=== PATIENT | female | born 1960 | race Caucasian/White ===

== ENCOUNTER 2021-07-31 13:33 | Emergency (ER) | payer OTHER ==
[2021-07-31] MEDS ORDERED: TETANUS & DIPHTHERIA TOX,ADULT 0.5 ML VIAL ONE (14:22)
[2021-07-31] MEDS ORDERED: TRAMADOL HCL 50 MG TAB ONE (14:22)
--- NOTE | 2021-07-31 15:34 | RAD REPORT ---
EXAM DESCRIPTION: Alice Single View07/31/2021 3:21 pm CLINICAL HISTORY: Chest pain COMPARISON: none FINDINGS: The lungs appear clear of acute infiltrate. The heart is normal size IMPRESSION: No acute abnormalities displayed
--- NOTE | 2021-07-31 15:35 | RAD REPORT ---
EXAM DESCRIPTION: RAD - Humerus Right - 07/31/2021 3:21 pm CLINICAL HISTORY: Right arm pain status post fall FINDINGS: No fracture is seen
--- NOTE | 2021-07-31 15:36 | ER ---
Nurse's Notes [facility] Name: Joanna Melchor Age: 60 yrs Sex: Female : 1960 Arrival Date: 07/31/2021 Time: 13:38 Bed 10 Private MD: Diagnosis: Pain in right shoulder Presentation: 07/31 13:48 Chief complaint: Patient states: [place] and I tripped and ph stumbled and landed on my R side." Reports pain and limited ROM to R shoulder and collarbone area, abrasions to R thigh. Coronavirus screen: Vaccine status: Patient reports receiving the 2nd dose of the covid vaccine. Ebola Screen: No symptoms or risks identified at this time. Initial Sepsis Screen: Does the patient meet any 2 criteria? No. Patient's initial sepsis screen is negative. Does the patient have a suspected source of infection? No. Patient's initial sepsis screen is negative. Risk Assessment: Do you want to hurt yourself or someone else? Patient reports no desire to harm self or others. Onset of symptoms. 13:48 Method Of Arrival: Wheelchair ph 13:48 Acuity: CHARLI 4 ph Triage Assessment: 14:44 General: Appears in no apparent distress. Behavior is calm, cooperative. kd3 Historical: - Allergies: 13:54 Vicodin; ph - PMHx: 13:54 Diabetes mellitus; ph - PSHx: 13:54 foot; ph - Immunization history:: Client reports receiving the 2nd dose of the Covid vaccine. - Social history:: Smoking status: Patient denies any tobacco usage or history of. Screenin:43 Abuse screen: Denies threats or abuse. Denies injuries from another. Nutritional kd3 screening: No deficits noted. Tuberculosis screening: No symptoms or risk factors identified. Fall Risk None identified. Assessment: 14:42 Pain: Complains of pain in right clavicle, anterior aspect of right upper chest and kd3 right arm. Neuro: No deficits noted. Cardiovascular: No deficits noted. Respiratory: No deficits noted. GI: No deficits noted. : No deficits noted. EENT: No deficits noted. Derm: No deficits noted. 14:55 Reassessment: pt is able to move extremity without crepitus but is having pain with kd3 movement and prefers to keep it still. 15:57 Reassessment: Patient and/or family updated on plan of care and expected duration. Pain kd3 level reassessed. Patient is alert, oriented x 3, equal unlabored respirations, skin warm/dry/pink. Vital Signs: 13:48 BP 155 / 89; Pulse 81; Resp 18; Temp 97.9; Pulse Ox 99% ; Weight 79.83 kg; Height 5 ft. ph 7 in. (170.18 cm); 13:48 Body Mass Index 27.57 (79.83 kg, 170.18 cm) ph ED Course: 13:38 Patient arrived in ED. mr 13:54 Triage completed. ph 13:54 Arm band placed on. ph 13:59 Apple Santiago FNP-C is [facility]. kb 13:59 Bishop Pereira MD is Attending Physician. kb 14:03 Cynthia Devries RN is Primary Nurse. kd3 14:43 Patient has correct armband on for positive identification. kd3 15:21 Humerus Right XRAY In Process Unspecified. EDMS 15:21 Chest Single View XRAY In Process Unspecified. EDMS 15:58 No provider procedures requiring assistance completed. Patient did not have IV access kd3 during this emergency room visit. 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 Exp: jd3 10/28/2022. Lot #: [id number]. } Route: IM; Site: left deltoid; 15:20 Follow up: Response: No adverse reaction jd3 Outcome: 15:36 Discharge ordered by . kb 15:58 Discharged to home via wheelchair, with family. kd3 15:58 Condition: stable 15:58 Discharge instructions given to patient, family, Instructed on discharge instructions, follow up and referral plans. medication usage, Demonstrated understanding of instructions, follow-up care, medications, Prescriptions given X 1. 15:59 Patient left the ED. kd3 Signatures: Dispatcher [employer] EDMS Apple Santiago FNP-C FNP-Adarsh Lexi Garcia Sara Santamaria RN RN Ricky Cavanaugh RN RN jd3 Cynthia Devries RN RN kd3 Corrections: (The following items were deleted from the chart) 13:54 13:54 Allergies: No Known Allergies; ph 17:26 15:20 Response: No adverse reaction barbara jimenez
--- NOTE | 2021-07-31 15:36 | EDPHYS ---
Physician Documentation [facility] Name: Joanna Melchor Age: 60 yrs Sex: Female : 1960 Arrival Date: 07/31/2021 Time: 13:38 Bed 10 Private MD: ED Physician Bishop Pereira HPI: 07/31 14:14 This 60 yrs old Female presents to ER via Wheelchair with complaints of Fall Injury, kb Shoulder Injury. 14:14 Details of fall: The patient fell from an upright position, while walking. Onset: The kb symptoms/episode began/occurred just prior to arrival. Associated injuries: The patient sustained right upper arm and anterior aspect of right shoulder and right clavicle, decreased range of motion, painful injury. Severity of symptoms: At their worst the symptoms were moderate, in the emergency department the symptoms are unchanged. The patient has not experienced similar symptoms in the past. The patient has not recently seen a physician. Pt reports she was walking on a nature trail and fell onto right shoulder. c/o pain and decreased rom to right shoulder and right clavicle. Historical: - Allergies: 13:54 Vicodin; ph - PMHx: 13:54 Diabetes mellitus; ph - PSHx: 13:54 foot; ph - Immunization history:: Client reports receiving the 2nd dose of the Covid vaccine. - Social history:: Smoking status: Patient denies any tobacco usage or history of. ROS: 14:13 Constitutional: Negative for fever, chills, and weight loss. kb 14:13 MS/extremity: Positive for decreased range of motion, pain, tenderness, of the right clavicle, anterior aspect of right shoulder and right upper arm. 14:13 All other systems are negative. Exam: 14:14 Constitutional: This is a well developed, well nourished patient who is awake, alert, kb and in no acute distress. Head/Face: Normocephalic, atraumatic. ENT: Moist Mucous membranes Respiratory: Respirations even and unlabored. No increased work of breathing. Talking in full sentences Skin: Warm, dry with normal turgor. Normal color. Neuro: Awake and alert, GCS 15, oriented to person, place, time, and situation. Moves all extremities. Normal gait. Psych: Awake, alert, with orientation to person, place and time. Behavior, mood, and affect are within normal limits. 14:14 Musculoskeletal/extremity: Extremities: grossly normal except: noted in the right upper arm and anterior aspect of right shoulder and right clavicle: decreased ROM, pain, tenderness, ROM: limited active range of motion due to pain, in the right upper arm and anterior aspect of right shoulder, Circulation is intact in all extremities. Sensation intact. Vital Signs: 13:48 BP 155 / 89; Pulse 81; Resp 18; Temp 97.9; Pulse Ox 99% ; Weight 79.83 kg; Height 5 ft. ph 7 in. (170.18 cm); 13:48 Body Mass Index 27.57 (79.83 kg, 170.18 cm) ph MDM: 13:59 Patient medically screened. kb 14:13 Data reviewed: vital signs, nurses notes. Data interpreted: Pulse oximetry: on room air kb is 99 %. Interpretation: normal. 15:36 Counseling: I had a detailed discussion with the patient and/or guardian regarding: the kb historical points, exam findings, and any diagnostic results supporting the discharge/admit diagnosis, radiology results, the need for outpatient follow up, a family practitioner, to return to the emergency department if symptoms worsen or persist or if there are any questions or concerns that arise at home. 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 Exp: jd3 10/28/2022. Lot #: [id number]. } Route: IM; Site: left deltoid; 15:20 Follow up: Response: No adverse reaction jd3 Disposition Summary: 07/31/21 15:36 Discharge Ordered Location: Home kb Condition: Stable kb Diagnosis - Pain in right shoulder kb Followup: kb - With: Emergency Department - When: As needed - Reason: Worsening of condition Followup: kb - With: Private Physician - When: 2 - 3 days - Reason: Recheck today's complaints, Continuance of care, Re-evaluation by your physician Discharge Instructions: - Discharge Summary Sheet kb - Shoulder Pain, [id number] kb Forms: - Medication Reconciliation Form kb - Thank You Letter kb - Antibiotic Education kb - Prescription Opioid Use kb - Work release form kd3 Prescriptions: - Diclofenac Sodium 75 mg Oral tablet,delayed release (DR/EC) - take 1 tablet by ORAL route 2 times per day As needed; 30 tablet; Refills: 0, kb Product Selection Permitted Signatures: Dispatcher [employer] EDApple Duarte, [employer] TUTOR-C PRIMITIVO-Sara Melton, RN RN ph Ricky Cavanaugh RN RN jd3 Corrections: (The following items were deleted from the chart) 13:54 13:54 Allergies: No Known Allergies; [facility]
[2021-07-31 16:47] VITALS: BP 155/89; TEMP 97.9; O2SAT 99
== END 2021-07-31 15:59 | disposition home or self-care (01) ==
LOC: ER 13:33
DX: M25.511 Pain in right shoulder (principal); W18.30XA Fall on same level, unspecified, initial encounter; Y93.01 Activity, walking, marching and hiking; Y92.89 Other specified places as the place of occurrence of the external cause; E11.9 Type 2 diabetes mellitus without complications; Z23 Encounter for immunization; Z88.5 Allergy status to narcotic agent
CPT/HCPCS: 71045; 90471; 90714; 99283